=== PATIENT | female | born 1965 | race Caucasian/White ===

== ENCOUNTER 2018-03-03 05:53 | Day surgery (SDC) | payer OTHER ==
[2018-02-28 14:45] LABS: Absolute Lymphocytes (CBC) 3.1 K/uL (0.7-4.9); Absolute Monocytes 0.5 K/uL (0.1-1.3); Absolute Neutrophil 6.3 K/uL (1.8-8.0); Basophils % 0.9 % (0-1.3); Eosinophils % 1.5 % (0-4.4); Lymphocytes % 30.4 % (15.3-44.8); MPV 9.2 fL (7.6-11.3); Monocytes % 5.3 % (3.3-12.3); RBC Red Blood Cell Count 4.74 M/uL (3.86-4.86)
[2018-02-28 14:56] LABS: Urine Appearance CLEAR; Urine Bilirubin NEGATIVE (NEG); Urine Blood NEGATIVE (NEG); Urine Color YELLOW; Urine Glucose NEGATIVE (NEG); Urine Protein NEGATIVE (NEG); Urine Specific Gravity <=1.005 (1.005-1.030); Urine Urobilinogen 0.2 mg/dL (0.2-1.0)
[2018-02-28 15:20] LABS: Urine Microscopic Reflex NO UMIC
[2018-03-03] MEDS ORDERED: SCOPOLAMINE HYDROBROMIDE PATCH TD ONE (06:13)
[2018-03-03] MEDS ORDERED: Ringers Lactate 1,000 ML IV ONE ×3 (06:13→10:29)
[2018-03-03] MEDS ORDERED: LIDOCAINE 1% MPF 30 ML VIAL ONE (06:18)
[2018-03-03] MEDS ORDERED: NA CHLORIDE 0.9% 0 ML ONE (06:58)
[2018-03-03] MEDS ORDERED: NA CHLORIDE 0.9% 1,000 ML ONE (06:58)
[2018-03-03] MEDS ORDERED: LIDOCAINE 2% MPF 5 ML VIAL ONE (07:07)
[2018-03-03] MEDS ORDERED: ROCURONIUM 50 MG/5 ML VIAL IV ONE (07:07)
[2018-03-03] MEDS ORDERED: PROPOFOL 200 MG/20 ML VIAL IV ONE (07:07)
[2018-03-03] MEDS ORDERED: FENTANYL CITR 250 MCG/5 ML ONE (07:07)
[2018-03-03] MEDS ORDERED: MIDAZOLAM HCL 2 MG/2 ML INJ ONE ×2 (07:08→11:39)
[2018-03-03] MEDS ORDERED: ONDANSETRON 4 MG/2 ML VIAL ONE (07:08)
[2018-03-03] MEDS ORDERED: CEFAZOLIN 1GM (PREMIX IV) 1 GM/50 ML BAG ONE ×2 (07:32→08:06)
[2018-03-03] MEDS ORDERED: EPHEDRINE SULF 50 MG/10 ML SYR ONE (08:14)
[2018-03-03] MEDS ORDERED: DEXAMETHASONE 10 MG/ML VIAL ONE (08:17)
[2018-03-03] MEDS ORDERED: KETOROLAC 30 MG/ML INJ ONE (10:22)
[2018-03-03] MEDS: HYDROMORPHONE HCL 1 MG/ML INJ ONE ×4 (10:55→11:12)
[2018-03-03] MEDS ORDERED: PROMETHAZINE 25 MG/ML VIAL ONE (11:02)
[2018-03-03] MEDS ORDERED: HYDROCODONE/APAP 5/325 MG TAB ONE (12:44)
--- NOTE | 2018-03-04 04:00 | OP ---
Date of Procedure: 03/03/2018 Surgeon: Dawna Nguyen MD Bait Digger: Liz Sullivan. Preoperative Diagnoses: Pelvic pain status post Essure and endometrial ablation about 12 years ago. No other sources of pain. Postoperative Diagnoses: Pelvic pain status post Essure and endometrial ablation about 12 years ago. No other sources of pain. Leiomyoma and foreign bodies in the tubes. Procedures Performed: 1.Diagnostic hysteroscopy. 2.Diagnostic laparoscopy. 3.Bilateral salpingectomy. 4.Removal of Essure coil from the left tube and later conversion to total laparoscopic hysterectomy, bilateral salpingo-oophorectomy, and cystoscopy. Ebl: Minimal. Complications: No complications. Drains: No drains. Condition: Patient's condition stable. Findings: Uterine cavity completely obliterated with intrauterine adhesions. Unable to advance the uterine manipulator into the uterus without having laparoscopic assistance. On laparoscopic visualization of the cavity, there were no hydrosalpinges, there were right tubal adh esions to the pelvic sidewall, leiomyoma at the proximal part of the round ligament. On opening the left tube, the Essure coil was present and was able to be completely removed. On the right side when the salpingotomy was performed, there was no Essure coil that was detected. So decision was made in the absence of the coil that could be removed and with the suspicion from imaging that both coils co uld be on the same side, the mass present in the proximal part of the round ligament and still went t o the uterus, which was suspicious for a possible foreign body reaction if there was a coil present, surgery converted to laparoscopic hysterectomy to ensure that the foreign body is removed, and bilate ral oophorectomy performed as discussed with the patient and the patient was consented appropriately preop. Indications: The patient is a 52-year-old presenting with pelvic pain and history of menorrhagia in the past and fibroids. This was the reason why she had an endometrial ablation which was followed by placement of Essure coils for permanent sterilization. The patient has done well without any proble ms either pain or bleeding for about 6 to 8 years and she has had recurrent symptoms over time. No b leeding thus far. However, pain has been most bothersome. She was initially my patient, then was se en by Dr. Link and referred back to me for the procedure. On ultrasound, there was a question that b oth coils could be seen on the left. There was a fibroid that was detected in the anterior wall that was small. No other abnormalities detected. 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 All other non-CONTROL OPERATOR FLOW COAT workup has been negative thus far, and the patient garcia s not have any urinary symptoms. So, I consented her for hysteroscopy, laparoscopy, removal of Essur e coils, bilateral salpingectomy. If there is no other etiology that could explain her pain, possibi lity of hysterectomy, bilateral salpingo-oophorectomy was discussed, and the patient completely wante d to have hysterectomy if it was indicated. Description Of Procedure: 2 g of Ancef was given preop, re-consented. Taken to the OR, placed in a supine fashion on the operating table. General anesthesia given. The patient placed in a dorsal lit hotomy position. Pelvic exam performed. Anteflexed uterus. No adnexal masses. Very minimal prolap se. Abdomen, vulva, vagina, and perineum were prepped and draped in a sterile fashion. Grant was placed to drain the bladder. Speculum was used to expose the cervix. Anterior lip grasped with 2 Allis cla mps. Direct hysteroscopy with a SlimLine hysteroscope was performed. Unable to enter the uterine ca vity. At this point, I aborted this procedure. Grant was left in place. The area was draped. A 1 cm infraumbilical incision was made with a scalpel using the open laparoscopy technique. Fascia was incised, tagged with 0 Vicryl sutures. Peritoneum entered bluntly and S retractor was placed for the Khushboo trocar to be introduced. Site of entry was checked and was unremarkable. Upper abdomina l surfaces with omental adhesions to the anterior abdominal wall from her gastric bypass most likely, but nothing infraumbilical. Both ovaries were checked and were unremarkable. The 5 mm suprapubic a nd left lower quadrant trocars were placed under direct vision without any problems. After the bowel was tucked to the upper abdominal cavity and the patient was placed in Trendelenburg optimally, afte r visualizing the orientation of the uterus, I was able to place the diagnostic VCare and advanced 5 cm towards the midline of the uterine cavity, orientation as determined by the laparoscope . Once this was fixed in place, gloves were changed. Both ureters were traced from the pelvic brim to the ureteric tunnels and there was no anatomical dis tortion. Posterior cul-de-sac completely unremarkable. Anterior cul-de-sac with adhesions from her prior section. Started to do a salpingectomy. Took the left tube down from the fimbriated end all the way to the pr oximal part. Here, salpingotomy was performed with the help of a monopolar needle. The Essure coils were identified and carefully removed. They were removed in 3 pieces and all from the coils were co llected without leaving any residual on the bowel paying careful attention and this was handed off fo r permanent pathology for pathological documentation of the foreign body. Similarly, the tube was removed from the distal fimbriated end towards the proximal cornual end. Her e salpingotomy was performed but there was no evidence even when the incision was extended onto the c ornual end of any coil that could be detected without getting into the muscle of the uterus, so I dec ided to go over to the other side, evaluate the proximal left round ligament mass for a possibility o f the presence of coil. It was very difficult to detect, it appeared to be more like a leiomyoma how ever. Unable to differentiate this from a foreign body reaction. Due to this reason and also the fa ct that the patient desired removal of all foreign body materials, if I was not able to remove this c ompletely, it would be a problem, so hysterectomy was a preferable option at this point. So I went a head and started the hysterectomy, taking down the anterior broad ligament, creating a bladder flap, taking it all the way to the right side. Then on the left side, the round ligament was taken down. Utero-ovarian ligament, mesosalpinx, posterior broad ligament were all taken down to the left uterosa cral ligament and dissection was carried to pull the retracted ureter laterally. Then, the vessels w ere skeletonized. On the opposite side, similar dissection was performed taking down the utero-ovari an ligament, round ligament, and the posterior broad ligament to the right uterosacral. Then broad l igament was skeletonized, vessels were well exposed. Bladder flap was raised with the help of monopo lar, taking down the loose areolar tissue to get into the vesicovaginal space. The bladder was disse cted inferiorly adequately, and at this point, the vessels were taken by creating medial windows with monopolar hook blade on the right side, then bipolar basket tip used to take down the vessels close to the uterus and cervix at the level of the internal os. Then, these were . Cardinal liga ments were taken down as well with the help of the bipolar basket tip and the LigaSure. Then, on the opposite side, similar dissection was performed to take down the vessels and the supports. Monopola r hook blade was used to perform a circumferential colpotomy leaving the diagnostic VCare in place. The cervix was held anteriorly while performing the posterior colpotomy, and once the entire specimen was detached, it was pulled out through the vagina. It was a tiny uterus. Both tubal specimens wer e all retrieved and handed out. The ovaries were taken down with the help of the LigaSure on each si de after isolating the infundibulopelvic ligament, first on the left side, then right side, and they were retrieved through the vagina. Thorough irrigation and suction were performed at the vaginal cuff. Vaginal cuff closure was perform ed with the help of a 0 Vicryl simple stitch at the left angle, then another simple stitch placed at the right angle closing the angle well and then continuous running lock suture with the stitch starti ng at the right side of the patient. This was tied to the left tail and there was excellent closure and apposition of the tissues. No evidence of any bleeding. There was excellent hemostasis. Molder ior peritoneum was included in the closure. All the pedicles were checked and were unremarkable. All the trocars removed. I placed a 10 mm supr apubic trocar at the time of suturing to make it easy for the CT-1 needle to come in and out without have to change ports multiple times. After the gas was desufflated and trocars removed, the fascia at the umbilicus was closed with the he lp of 0 Vicryl suture in [id number] fashion x2 and a simple 0 Vicryl stitch was attempted to susan ce in the suprapubic incision, but this was really a tiny incision, so I just had difficulty with acc ess as well was encountered, so I left this alone. A deep stitch in the subcutaneous tissues was susan rusty. All the skin incisions closed with the help of interrupted Monocryl 4-0 sutures. Then, Grant w as removed, the vaginal occluder that was placed, a sponge tucked in a glove was also removed. Then, full cystoscopy was performed with a 17-Turkmen sheath, 30-degree lens and normal saline. Both urete mirella orifices were well visualized as the bladder was distended appropriately. No evidence of any clinton dder trauma or foreign body. Strong jets of urine were seen from both ureteric orifices and the blad elizabeth was drained. The patient was recovered from anesthesia, vagina was cleaned. Instrument, needle, and sponge counts were correct at the end of the case. Patient tolerated the procedure well. She w ill follow up with me in 1 week. EDUARD/EVA Voice ID: [id number] Report ID: [id number]
== END 2018-03-03 13:17 | disposition home or self-care (01) ==
LOC: OR 05:53
PROVIDERS: ATTEND Obstetrics & Gynecology
PROC: 0UT24ZZ Resection of Bilateral Ovaries, Percutaneous Endoscopic Approach (ICD-10-PCS; 2018-03-03)
PROC: 0UT74ZZ Resection of Bilateral Fallopian Tubes, Percutaneous Endoscopic Approach (ICD-10-PCS; 2018-03-03)
PROC: 0UTC4ZZ Resection of Cervix, Percutaneous Endoscopic Approach (ICD-10-PCS; 2018-03-03)
PROC: 0UT94ZZ Resection of Uterus, Percutaneous Endoscopic Approach (ICD-10-PCS; principal; 2018-03-03 07:00)
DX: D25.2 Subserosal leiomyoma of uterus (principal); N83.11 Corpus luteum cyst of right ovary; T19.8XXA Foreign body in other parts of genitourinary tract, initial encounter; M79.5 Residual foreign body in soft tissue; I10 Essential (primary) hypertension; K66.0 Peritoneal adhesions (postprocedural) (postinfection); F17.200 Nicotine dependence, unspecified, uncomplicated; Z79.899 Other long term (current) drug therapy; Z98.84 Bariatric surgery status
CPT/HCPCS: 36415; 81003; 83001; 85025; 86850; 86900; 86901; 88300; 88307; J0690; J1100; J1170; J2250; J2405; J2550; J2704; J3010; J7030

== ENCOUNTER 2020-11-07 11:17 | Emergency (ER) | payer OTHER ==
--- NOTE | 2020-11-07 12:21 | RAD REPORT ---
EXAM DESCRIPTION: RAD - Knee Right 3 View - 11/07/2020 12:12 pm CLINICAL HISTORY: fall;Pain COMPARISON: No comparisons FINDINGS: No significant bone or joint abnormality seen.
--- NOTE | 2020-11-07 12:22 | RAD REPORT ---
EXAM DESCRIPTION: RAD - Foot Left 3 View - 11/07/2020 12:12 pm CLINICAL HISTORY: fall;Pain COMPARISON: No comparisons FINDINGS: No acute fracture or dislocation is seen. Moderate plantar calcaneal spur is evident.
--- NOTE | 2020-11-07 12:22 | RAD REPORT ---
EXAM DESCRIPTION: RAD - Knee Left 3 View - 11/07/2020 12:12 pm CLINICAL HISTORY: fall;Pain COMPARISON: No comparisons FINDINGS: Mild medial compartment space arthritic changes are present. No fracture or dislocation se en. No joint effusion present.
--- NOTE | 2020-11-07 12:52 | ER ---
Nurse's Notes [facility] Name: Sis Bobby Age: 55 yrs Sex: Female : 1965 Arrival Date: 11/07/2020 Time: 11:18 Bed DIS3 Private MD: Diagnosis: Abrasion of the right lower leg;Left foot strain;Internal derangement of the right knee;Fall Presentation: 11/07 11:26 Chief complaint: Patient states: tripped and fell today in a parking lot, c/o lani knee sv pain and left foot pain. Care prior to arrival: None. Mechanism of Injury: Fall from standing position. Trauma event details: Injury occurred in the [facility], Injury occurred: on a street or highway. Injury occurred: November 07, 2020. 11:26 Acuity: BINU 4 sv 11:26 Method Of Arrival: Ambulatory sv 11:28 Coronavirus screen: Client denies travel out of the [place] in the last 14 days. At this sv time, the client does not indicate any symptoms associated with coronavirus-19. Ebola Screen: No symptoms or risks identified at this time. Onset of symptoms was November 07, 2020. 11:28 Initial Sepsis Screen: Does the patient meet any 2 criteria? No. Patient's initial sv sepsis screen is negative. Does the patient have a suspected source of infection? No. Patient's initial sepsis screen is negative. Risk Assessment: Do you want to hurt yourself or someone else? Patient reports no desire to harm self or others. Triage Assessment: 11:41 General: Appears in no apparent distress. uncomfortable, Behavior is calm, cooperative, sv appropriate for age. Pain: Complains of pain in bilateral knees and left foot. Neuro: Level of Consciousness is awake, alert, obeys commands, Gait is steady. Respiratory: Respiratory effort is even, unlabored. Injury Description: Abrasion sustained to dorsum of left foot, right knee and right velez. Trauma Activation: Not Applicable Physician: ED Physician; Name: ; Notified At: ; Arrived At: Physician: General Surgeon; Name: ; Notified At: ; Arrived At: Physician: Radiology; Name: ; Notified At: ; Arrived At: Physician: Respiratory; Name: ; Notified At: ; Arrived At: Physician: Lab; Name: ; Notified At: ; Arrived At: Historical: - Allergies: 11:28 Codeine; sv - PMHx: 11:[address]; [address] 1 melanoma; sv - Immunization history:: Client reports receiving the 2nd dose of the Covid vaccine, Client reports receiving the 1st dose of the Covid vaccine. - Social history:: Smoking status: Patient reports the use of cigarette tobacco products, denies chronic smoking, but will smoke occasionally. Screenin:22 Abuse screen: Denies threats or abuse. Denies injuries from another. Nutritional zb screening: No deficits noted. Tuberculosis screening: No symptoms or risk factors identified. Fall Risk Fall in past 12 months (25 points). No secondary diagnosis (0 pts). No IV (0 pts). Ambulatory Aid- None/Bed Rest/Nurse Assist (0 pts). Gait- Normal/Bed Rest/Wheelchair (0 pts) Mental Status- Oriented to own ability (0 pts). Total Ortiz Fall Scale indicates No Risk (0-24 pts). Assessment: 12:00 General: Appears in no apparent distress. Behavior is calm, cooperative, appropriate zb for age. Pain: Complains of pain in right leg and left foot and right velez and right knee Pain currently is 5 out of 10 on a pain scale. Quality of pain is described as Pain began suddenly, today. Neuro: Level of Consciousness is awake, alert, obeys commands, Oriented to person, place, time, situation. Cardiovascular: Patient's skin is warm and dry. Respiratory: Airway is patent Respiratory effort is even, unlabored, Respiratory pattern is regular, symmetrical. Derm: Skin is healthy with good turgor. Musculoskeletal: Range of motion: intact in all extremities, Swelling present in left foot. Injury Description: Abrasion sustained to left foot and right leg. Vital Signs: 11:28 BP 148 / 89; Pulse 70; Resp 16; Temp 98.2; Pulse Ox 99% ; Weight 83.91 kg; Height 5 ft. sv 4 in. (162.56 cm); 13:22 BP 140 / 80; Pulse 71; Resp 16; Pulse Ox 98% on R/A; zb 11:28 Body Mass Index 31.75 (83.91 kg, 162.56 cm) sv ED Course: 11:18 Patient arrived in ED. am2 11:27 Triage completed. sv 11:28 Arm band placed on. sv 12:12 Knee Right 3 View XRAY In Process Unspecified. EDMS 12:12 Knee Left 3 View XRAY In Process Unspecified. EDMS 12:12 Foot Left 3 View XRAY In Process Unspecified. EDMS 12:16 Arsh Herron PA is PHCP. jmm 12:16 Danie Melendez MD is Attending Physician. jmm 12:19 Lyndsey Cordova, CYALA is Primary Nurse. zb 12:51 Primo Carr MD is Referral Physician. jmm 13:22 Patient has correct armband on for positive identification. Pulse ox on. NIBP on. zb 13:22 No provider procedures requiring assistance completed. Patient did not have IV access zb during this emergency room visit. 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 Exp: zb 05/30/2022. Lot #: [id number]. } Route: IM; Site: right deltoid; 13:15 Follow up: Response: No adverse reaction zb Outcome: 12:52 Discharge ordered by . jmm 13:22 Discharged to home ambulatory. zb 13:22 Condition: stable 13:22 Discharge instructions given to patient, Instructed on discharge instructions, follow up and referral plans. safe sex practices, Demonstrated understanding of instructions, follow-up care, medications, Prescriptions given X 1. 13:23 Patient left the ED. zb Signatures: Dispatcher [employer] Nikole Felix, Arsh Hernandez RN, PA PA jmm Moreno, Amanda [facility] Lyndsey Cordova RN RN zb
--- NOTE | 2020-11-07 12:53 | EDPHYS ---
Physician Documentation [facility] Name: Sis Bobby Age: 55 yrs Sex: Female : 1965 Arrival Date: 11/07/2020 Time: 11:18 Bed DIS3 Private MD: ED Physician Danie Melendez HPI: 11/07 12:47 This 55 yrs old Female presents to ER via Ambulatory with complaints of Fall jmm Injury, Ankle Injury, Leg Pain. 12:47 Details of fall: The patient fell from an upright position. Onset: The symptoms/episode jmm began/occurred acutely, just prior to arrival. Associated injuries: The patient sustained right and left lower extremities. It is unknown whether or not the patient has had similar symptoms in the past. This is a 55-year-old female with history of hypertension the presents emerged department with complaints of bilateral lower extremity pain following a fall which occurred just prior to arrival. Patient states she slipped in a parking lot landing onto outstretched hands. Patient denies hitting her head. Pain is mainly localized to the right tibial region and the left foot.. Historical: - Allergies: 11:28 Codeine; sv - PMHx: 11:[address] 1 melanoma; sv - Immunization history:: Client reports receiving the 2nd dose of the Covid vaccine, Client reports receiving the 1st dose of the Covid vaccine. - Social history:: Smoking status: Patient reports the use of cigarette tobacco products, denies chronic smoking, but will smoke occasionally. ROS: 12:47 Constitutional: Negative for fever, chills, and weight loss, Cardiovascular: Negative jmm for chest pain, palpitations, and edema, Respiratory: Negative for shortness of breath, cough, wheezing, and pleuritic chest pain. 12:47 MS/extremity: Positive for injury or acute deformity, pain. 12:47 All other systems are negative. Exam: 12:47 Constitutional: This is a well developed, well nourished patient who is awake, alert, jmm and in no acute distress. Head/Face: atraumatic. Eyes: EOMI, no conjunctival erythema appreciated ENT: Moist Mucus Membranes Neck: Trachea midline, Supple Chest/axilla: Normal chest wall appearance and motion. Cardiovascular: Regular rate and rhythm. No edema appreciated Respiratory: Normal respirations, no respiratory distress appreciated Abdomen/GI: Non distended, soft Back: Normal ROM 12:47 Musculoskeletal/extremity: Left foot diffusely tender to palpation, full dorsalis pulses appreciated, compartments are soft, neurovascular intact. Right anterior knee mildly tender to palpation, no obvious deformity, full distal dorsalis pedis pulse, compartments are soft, full range of motion appreciated to the right knee, neurovascular intact. 12:47 Skin: Abrasion noted to the right tibia region. 12:47 Neuro: Orientation: is normal, Mentation: is normal, Memory: is normal. 12:47 Psych: Behavior/mood is pleasant, cooperative. Vital Signs: 11:28 BP 148 / 89; Pulse 70; Resp 16; Temp 98.2; Pulse Ox 99% ; Weight 83.91 kg; Height 5 ft. sv 4 in. (162.56 cm); 13:22 BP 140 / 80; Pulse 71; Resp 16; Pulse Ox 98% on R/A; zb 11:28 Body Mass Index 31.75 (83.91 kg, 162.56 cm) sv MDM: 12:20 Patient medically screened. [facility] 12:51 Data reviewed: vital signs, nurses notes. Counseling: I had a detailed discussion with liza the patient and/or guardian regarding: the historical points, exam findings, and any diagnostic results supporting the discharge/admit diagnosis, radiology results, to return to the emergency department if symptoms worsen or persist or if there are any questions or concerns that arise at home. ED course: X-rays are negative for fracture. Will treat abrasions and strains. Patient is advised to follow with orthopedics and otherwise given strict return precautions. Patient understood and agrees plan of care.. 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 Exp: zb 05/30/2022. Lot #: [id number]. } Route: IM; Site: right deltoid; 13:15 Follow up: Response: No adverse reaction zb Disposition: 14:51 Co-signature as Attending Physician, Danie Melendez MD I agree with the assessment and chio plan of care. Disposition Summary: 11/07/20 12:52 Discharge Ordered Location: Home jmm Condition: Stable jmm Diagnosis - Abrasion of the right lower leg jmm - Left foot strain jmm - Internal derangement of the right knee jmm - Fall jmm Followup: [facility] - With: Primo Carr MD - When: 2 - 3 days - Reason: Recheck today's complaints, Continuance of care, Re-evaluation by your physician Discharge Instructions: - Discharge Summary Sheet jmm - Abrasion jmm - Acute Knee Pain, Adult jmm - Foot Pain [facility] Forms: - Medication Reconciliation Form jmm - Thank You Letter jmm - Antibiotic Education jmm - Prescription Opioid Use jm - Work release form em1 Prescriptions: - Ibuprofen 800 mg Oral Tablet - take 1 tablet by ORAL route every 8 hours As needed take with food; 30 tablet; [facility] Refills: 0, Product Selection Permitted Signatures: Dispatcher [employer] Nikole Felix, RN Danie Mcgill MD MD cha Mickail, Joel, PA PA Lyndsey Henley RN RN leandra
[2020-11-07] MEDS ORDERED: TETANUS & DIPHTHERIA TOX,ADULT 0.5 ML VIAL ONE (13:22)
[2020-11-07 13:29] VITALS: TEMP 98.2
[2020-11-07 13:30] VITALS: BP 140/80; O2SAT 98
== END 2020-11-07 13:23 | disposition home or self-care (01) ==
LOC: ER 11:17
DX: S96.912A Strain of unspecified muscle and tendon at ankle and foot level, left foot, initial encounter (principal); M23.91 Unspecified internal derangement of right knee; S80.811A Abrasion, right lower leg, initial encounter; W01.0XXA Fall on same level from slipping, tripping and stumbling without subsequent striking against object, initial encounter; Y93.01 Activity, walking, marching and hiking; Y92.481 Parking lot as the place of occurrence of the external cause; Z23 Encounter for immunization; Z88.5 Allergy status to narcotic agent; I10 Essential (primary) hypertension; F17.210 Nicotine dependence, cigarettes, uncomplicated
CPT/HCPCS: 90471; 90714; 99284

== ENCOUNTER 2022-01-05 08:58 | Emergency (ER) | payer OTHER ==
--- OUTSIDE RECORDS SUMMARY | 2022-01-05 09:05 | XMS REPORT | Continuity of Care Document ---
:1965 Author Organization [facility] t Address [address] [place] [address] Care Team Providers Name Role Phone Katy Connolly Primary Care Physician Doctor Unassigned, [place] Attending Clinician Unavailable RADIOLOGY Attending Clinician Unavailable Radiology Attending Clinician Unavailable KATY CONNOLLY Admitting Clinician Unavailable Payers Payer Name Policy Type Policy Number Effective Date Expiration Date S ource Problems Condition Condition Condition Status Onset Resolution Last Treating Co mments Source Name Details Category Date Date Treatment Clinician Date Claustroph Claustroph Disease Active U nivers obia obia 1-15 ity of 00:00: [address] Abnormal Abnormal Disease Active 2016-03 Unive rs thyroid thyroid 1-21 ity of function function 00:00: [place] test test [facility] Prediabete Prediabete Disease Active U nivers s s - ity of 00:00: [place] [facility] Mixed Mixed Disease Active Univers dyslipidem dyslipidem 10-03 it y of ia ia 00:00: [place] [facility] Essential Essential Disease Active Uni vers hypertensi hypertensi - it y of on on 00:00: [place] [facility] Eczema Eczema Disease Active Univers - ity of 00:00: Medical Branch Actinic Actinic Disease Active Univers keratosis keratosis 09-30 ity of 00:00: [place] [facility] Obesity Obesity Disease Active Univers (BMI (BMI 09-30 ity of 30-39.9) 30-39.9) 00:00: [place] 00 [facility] Allergic Allergic Disease Active Unive rs rhinitis rhinitis 09-30 ity of 00:00: [place] 00 Medical Branch Other Other Disease Active Univers cardiac cardiac 09-30 ity of arrhythmia arrhythmia 00:[place] [facility] Mitral Mitral Disease Active Univers valve valve 09-30 ity of prolapse prolapse 00:00: [place] 00 Medical Branch Irritabili Irritabili Disease Active U nivers ty ty 09-30 ity of 00:00: [place] 00 Medical Branch Family Family Disease Active Univers history of history of 09-30 it y of diabetes diabetes 00:00: [place] mellitus mellitus 00 Medica l Branch Allergies, Adverse Reactions, Alerts Allergy Allergy Status Severity Reaction(s) Onset Inactive Treating Comm ents Source Name Type Date Date Clinician CODEINE DRUG Active ITCHING 2013-03 Univers INGREDI 2 ity of 00:00: [place] 00 Medical Branch Codeine Propensi Active Itching 2013-03 Univer s ty to 2-04 ity of adverse 00:00: [place] reaction 00 Medical s Branch Social History Social Habit Start Date Stop Date Quantity Comments Source History SDOH [facility] [place] Alcohol Frequency Medical Branch History SDOH [facility] [place] Alcohol Std Drinks Medica l Branch History SDOH [facility] [place] Alcohol Binge Medical Bra [facility] Tobacco use and 2017-09-07 2017-09-07 Never used [facility] exposure 00:00:00 00:00:00 Medical Branch Alcohol intake 2017-09-07 2017-09-07 0 /d [facility] 00:00:00 00:00:00 Medical Branch Alcohol Comment 2015-10-01 2015-10-01 rarely [facility] 00:00:00 00:00:00 Medical Branch Sex [birth year] [facility] 00:00:00 00:00:00 Medical Branch Smoking Status Start Date Stop Date Source Light tobacco smoker 2017-09-07 00:00:00 Univers ity of [place] [facility] Medications Ordered Filled Start Stop Current Ordering Indication Dosage Frequency Signature Comments Components Source Medication Medication Date Date Medication? Clinician (SIG) Name Name maribel Yes Apply to Un [place] ne 6-27 area(s) 2 ity of acetonide 00:00: (two) [place] 0.1 % cream 00 times Medical daily. Branch triamcinolo Yes Apply to Un [place] ne 6-27 area(s) 2 ity of acetonide 00:00: (two) [place] 0.1 % cream 00 times Medical daily. Branch triamcinolo Yes Apply to Un [place] ne 6-27 area(s) 2 ity of acetonide 00:00: (two) [place] 0.1 % cream 00 times Medical daily. Branch dicyclomine Yes 20mg Take 1 Univ ers (BENTYL) 20 6-26 tablet by ity of mg tablet 00:00: mouth 4 (four) Medical times [place] daily as needed for Abdominal pain for up to 30 doses. dicyclomine Yes 20mg Take 1 Univ ers (BENTYL) 20 6-26 tablet by ity of mg tablet 00:00: mouth 4 [place] (four) Medical times [place] daily as needed for Abdominal pain for up to 30 doses. dicyclomine Yes 20mg Take 1 Univ ers (BENTYL) 20 6-26 tablet by ity of mg tablet 00:00: mouth 4 [place] (four) Medical times [place] daily as needed for Abdominal pain for up to 30 doses. diazePAM 5 Yes [id number] 5-10 mg po Univers mg tablet -09 x 1 dose ity of 00:00: 30 mins [place] 00 prior to Medical MRI Branch diazePAM 5 Yes [id number] 5-10 mg po Univers mg tablet 09 x 1 dose ity of 00:00: 30 mins [place] 00 prior to Medical MRI Branch diazePAM 5 Yes [id number] 5-10 mg po Univers mg tablet -09 x 1 dose ity of 00:00: 30 mins [place] 00 prior to Medical MRI Branch lisinopril- 2016-03 Yes [id number] 1{tbl} Take 1 Univers hydrochloro 1-13 tablet by ity of thiazide 00:00: mouth [place] 20-25 mg 00 daily. Medical per tablet Branch levocetiriz 2016-03 Yes 2.5mg Take 0.5-1 Univers ine 5 mg 1-13 tablets by ity o f tablet 00:00: mouth [place] 00 every Medical evening. Branch beclomethas 2016-03 Yes 2{spray Use 2 Un [place] one 1-13 } Sprays in ity of dipropionat 00:00: each [place] e (QNASL) 00 nostril Medical 80 daily. Branch mcg/actuati on nasal spray lisinopril- 2016-03 Yes [id number] 1{tbl} Take 1 Univers hydrochloro 1-13 tablet by ity of thiazide 00:00: mouth [place] 20-25 mg 00 daily. Medical per tablet Branch levocetiriz 2016-03 Yes 2.5mg Take 0.5-1 Univers ine 5 mg 1-13 tablets by ity o f tablet 00:00: mouth [place] 00 every Medical evening. Branch beclomethas 2016-03 Yes 2{spray Use 2 Un [place] one 1-13 } Sprays in ity of dipropionat 00:00: each [place] e (QNASL) 00 nostril Medical 80 daily. Branch mcg/actuati on nasal spray lisinopril- 2016-03 Yes [id number] 1{tbl} Take 1 Univers hydrochloro 1-13 tablet by ity of thiazide 00:00: mouth [place] 20-25 mg 00 daily. Medical per tablet Branch levocetiriz 2016-03 Yes 2.5mg Take 0.5-1 Univers ine 5 mg 1-13 tablets by ity o f tablet 00:00: mouth [place] 00 every Medical evening. Branch beclomethas 2016-03 Yes 2{spray Use 2 Un [place] one 1-13 } Sprays in ity of dipropionat 00:00: each [place] e (QNASL) 00 nostril Medical 80 daily. Branch mcg/actuati on nasal spray Immunizations Ordered Filled Immunization Date Status Comments [facility] e Immunization Name Name Influenza Virus 2015-12-13 Completed Universit y of Vaccine 00:00:00 [facility] Influenza Virus 2015-12-13 Completed Universit y of Vaccine 00:00:00 [facility] Influenza Virus 2015-12-13 Completed Universit y of Vaccine 00:00:00 [facility] Procedures Procedure Date / Time Performing Clinician Source Performed AUTHORIZATION FOR 2021-09-04 05:01:00 Doctor Unassigned, No Univ [facility] RELEASE OF PHI Name Medical [place] LOW DOSE LUNG NODULE 2021-08-26 13:25:28 Kina, [facility] ASSIGNMENT OF BENEFITS 2021-08-26 12:56:48 Doctor Unassigned, No [facility] Encounters Start End Encounter Admission Attending Care Care Encounter Source Date/Time Date/Time Type Type Clinicians Facility Department ID 2021-09-04 2021-09-04 Orders Doctor CLARKE [id number] Univers 00:00:00 00:00:00 Only Unassigned, TYRESE [id number] ity of [place] [facility] [id number] Elias as [id number] [facility] jackson 009 Branch 2021-08-26 2021-08-26 Outpatient R RADIOLOGY [facility] [id number] Univers 08:01:06 23:59:00 ity of [facility] 2021-08-26 2021-08-26 [facility]iology [facility] [id number] Univers 08:00:00 23:59:00 Encounter [place] [id number] ity of [place] [id number] [facility] [id number] [facility] jackson 801 Branch 2021-08-26 2021-08-26 Orders Doctor TRICIA [id number] Univers 00:00:00 00:00:00 Only Unassigned, TYRESE [id number] ity of [place] [facility] [id number] Elias as [id number] [facility] 009 Branch Results This patient has no known results.
[2022-01-05] MEDS ORDERED: MORPHINE 4 MG/ML SYR ONE (09:37)
[2022-01-05] MEDS ORDERED: ONDANSETRON 4 MG/2 ML VIAL ONE (09:37)
[2022-01-05] MEDS ORDERED: NA CHLORIDE 0.9% 1,000 ML ONE (09:37)
[2022-01-05 09:43] LABS: Absolute Lymphocytes (CBC) 3.1 K/uL (0.7-4.9); Hematocrit 39.7 % (36.0-45.0); Lymphocytes % 18.1 % (15.3-44.8); MCV 88.5 fL (80-100); MPV 9.1 fL (7.6-11.3); RBC Red Blood Cell Count 4.48 M/uL (3.86-4.86)
[2022-01-05 09:48] LABS: Protime INR 1.07
[2022-01-05 10:02] LABS: Albumin 3.5 g/dL (3.4-5.0); Bilirubin Total 0.5 mg/dL (0.2-1.0); Potassium 3.8 mmol/L (3.5-5.1); Protein, Total 7.4 g/dL (6.4-8.2)
--- NOTE | 2022-01-05 10:49 | RAD REPORT ---
EXAM DESCRIPTION: CT - Chest Abdomen Pelvis W Cont - 01/05/2022 10:28 am CLINICAL HISTORY: Chest and abdomen pain. distal esophageal obstruction COMPARISON: No comparisons TECHNIQUE: Approximately 100 mL nonionic IV contrast was administered to the patient. All CT scans are performed using dose optimization technique as appropriate and may include automated exposure control or mA/KV adjustment according to patient size. FINDINGS: The lungs are clear.No pleural or pericardial effusion.No intrathoracic adenopathy. Esophagus is fluid-filled and distended. Postsurgical changes are present at the gastroesophageal mere ction. There is a rounded 5 cm distended air and fluid collection in the upper aspect of the stomach with postsurgical changes present. This is suspicious for intussusception or volvulus of the mildly d ilated portion of the proximal esophagus or a hiatal hernia. This is likely contributing to the esoph ageal obstruction. The liver, spleen, pancreas, adrenal glands and kidneys are within normal limits. No small bowel obstruction, free air, free fluid or abscess. Mild sigmoid diverticulosis without dive rticulitis. Normal appendix. No pathologic lymphadenopathy in the abdomen or pelvis. No worrisome osseous finding. IMPRESSION: The esophagus appears distended and fluid-filled suggesting obstruction. There are posts urgical changes in the region of the gastroesophageal junction. There is fluid and air-filled structu re measuring 5 cm within the lumen of the superior stomach cavity. This suggests that there is intuss usception or volvulus type abnormality present in the region involving a dilated proximal esophagus o r hiatal hernia. Recommend upper endoscopy for further evaluation.
[2022-01-05] MEDS ORDERED: PROMETHAZINE INJ 25 MG/ML AMP ONE (12:00)
[2022-01-05] MEDS ORDERED: PANTOPRAZOLE 40 MG INJ ONE (12:00)
[2022-01-05] MEDS ORDERED: NA CHLORIDE 0.9% 50 ML IV ONE (12:00)
--- NOTE | 2022-01-05 12:03 | ER ---
Nurse's Notes [facility] Cris Name: Sis Bobby Age: 56 yrs Sex: Female : 1965 Arrival Date: 01/05/2022 Time: 09:01 Bed 17 Private MD: Diagnosis: Esophageal obstruction;GI Bleed Presentation: 01/05 09:22 Chief complaint: Patient states: Was seen in [place] ER last night and had a CT done vg1 and was told 'has an obstruction in pouch'. Pt stated had weight loss sx in 1998. Stated 'black vomit and black stool' and Epigastric pain. Coronavirus screen: Vaccine status: Patient reports receiving the 2nd dose of the covid vaccine. Client denies travel out of the [place] in the last 14 days. Ebola Screen: Patient negative for fever greater than or equal to 101.5 degrees Fahrenheit, and additional compatible Ebola Virus Disease symptoms Patient denies exposure to infectious person. Initial Sepsis Screen: Does the patient meet any 2 criteria? RR > 20 per min. HR > 90 bpm. Yes Does the patient have a suspected source of infection? No. Patient's initial sepsis screen is negative. Risk Assessment: Do you want to hurt yourself or someone else? Patient reports no desire to harm self or others. Onset of symptoms was January 04, 2022. 09:22 Method Of Arrival: Wheelchair vg1 09:22 Acuity: BINU 3 vg1 Triage Assessment: 09:25 General: Appears uncomfortable, Behavior is anxious, crying. Pain: Complains of pain in vg1 epigastric area Pain currently is 8 out of 10 on a pain scale. Pain began 1 day ago. Neuro: Level of Consciousness is awake, alert, obeys commands, Oriented to person, place, time, situation. GI: Abdomen is round Reports diarrhea, epigastric pain, intolerance of fluids, nausea, vomiting, "black stool" and "black vomit". Derm: Skin is clammy, Skin is pale. Historical: - Allergies: 09:25 Codeine; vg1 09:25 tramadol; vg1 09:25 Sulfa (Sulfonamide Antibiotics); vg1 09:25 Bactrim; vg1 - Home Meds: 09:25 Lisinopril Oral [Active]; Metoprolol Tartrate Oral [Active]; Marisol Oral [Active]; vg1 - PMHx: 09:25 HTN; [address] 1 melanoma; vg1 - PSHx: 09:25 Tonsillectomy; Hysterectomy; section; Stomach; vg1 - Social history:: Smoking status: Patient reports the use of cigarette tobacco products, smokes one-half pack cigarettes per day. Screenin:33 Abuse screen: Denies threats or abuse. Nutritional screening: No deficits noted. tw2 Tuberculosis screening: No symptoms or risk factors identified. Fall Risk None identified. Assessment: 11:20 Reassessment: Patient appears in no apparent distress at this time. Patient and/or tw2 family updated on plan of care and expected duration. Pain level reassessed. Patient is alert, oriented x 3, equal unlabored respirations, skin warm/dry/pink. Patient states feeling better. 11:39 Reassessment: No changes from previously documented assessment. Carlos A Caldwell at bedside. ll1 12:31 Reassessment: No changes from previously documented assessment. Patient and/or family ll1 updated on plan of care and expected duration. Pain level reassessed. Patient is alert, oriented x 3, equal unlabored respirations, skin warm/dry/pink. 13:30 Reassessment: No changes from previously documented assessment. unable to pass NG tube ll1 past nares passageway on both sides. Attempted x 2 to both nares, patient tolerated procedures well. 13:43 Reassessment: No changes from previously documented assessment. Patient and/or family ll1 updated on plan of care and expected duration. Pain level reassessed. Report Calin Monterroso RN. 13:44 GI: Bowel sounds present X 4 quads. Abd is soft and non tender X 4 quads. ll1 14:34 Reassessment: No changes from previously documented assessment. Patient and/or family ll1 updated on plan of care and expected duration. Pain level reassessed. 15:10 Reassessment: No changes from previously documented assessment. Patient and/or family ll1 updated on plan of care and expected duration. Pain level reassessed. 15:19 Reassessment: No changes from previously documented assessment. ki [place] ll1 ([phone]) informed patient is being transferred downtown now by EMS. Verbalized understanding. Vital Signs: 09:22 BP 105 / 81; Pulse 110; Resp 24; Temp 98.3; Pulse Ox 98% on R/A; Weight 83.91 kg; vg1 Height 5 ft. 4 in. (162.56 cm); Pain 8/10; 09:52 BP 101 / 76; Pulse 88; Resp 17; Pulse Ox 95% on R/A; Pain 1/10; tw2 11:20 BP 117 / 75; Pulse 104; Resp 24; Pulse Ox 99% on R/A; tw2 12:30 BP 111 / 75; Pulse 95; Resp 20; Pulse Ox 95% ; ll1 14:34 BP 102 / 64; Pulse 84; Resp 18; Pulse Ox 95% on R/A; ll1 15:09 BP 104 / 67; Pulse 77; Resp 17; Pulse Ox 95% on R/A; ll1 09:22 Body Mass Index 31.75 (83.91 kg, 162.56 cm) vg1 ED Course: 09:01 Patient arrived in ED. am2 09:02 [facility] 09:02 Kings Yoder MD is Attending Physician. 7 09:12 Bed in low position. Call light in reach. monitor technician on. Pulse ox on. NIBP on. tw2 09:18 Arm band placed on Patient placed in an exam room, on a stretcher. ss 09:25 Triage completed. vg1 09:27 Inserted saline lock: 22 gauge in left antecubital area, using aseptic technique. Blood ll1 collected. 09:33 Bea Gutierres, RN is Primary Nurse. tw2 10:29 CT Chest, Abdomen, Pelvis - W/Contrast In Process Unspecified. EDMS 12:02 Alex Yen MD is Hospitalizing Provider. jh7 12:45 initiated transfer to [facility]. bd 13:44 No provider procedures requiring assistance completed. Patient transferred, IV remains ll1 in place. Administered Medications: 09:43 Drug: NS 0.9% 1000 ml Route: IV; Rate: 1 bolus; Site: right antecubital; tw2 12:05 Follow up: Response: No adverse reaction; IV Status: Completed infusion; IV Intake: ll1 1000ml 09:43 Drug: Zofran (Ondansetron) 4 mg Route: IVP; Site: right antecubital; tw2 12:04 Follow up: Response: No adverse reaction ll1 09:45 Drug: morphine 4 mg Route: IVP; Infused Over: 4 mins; Site: right antecubital; tw2 12:04 Follow up: Response: No adverse reaction; RASS: Alert and Calm (0) ll1 12:04 Drug: Phenergan (promethazine) 12.5 mg Route: IVP; Site: right antecubital; ll1 12:30 Follow up: Response: No adverse reaction; Nausea is decreased; RASS: Alert and Calm (0) ll1 12:04 Drug: ProTONIX (pantoprazole) 40 mg Route: IVP; Site: right antecubital; ll1 12:30 Follow up: Response: No adverse reaction ll1 12:30 Drug: Zosyn (piperacillin-tazobactam) 3.375 grams Route: IVPB; Infused Over: 60 mins; ll1 Site: right antecubital; 13:34 Follow up: Response: No adverse reaction; IV Status: Completed infusion; IV Intake: ll1 100ml 13:30 Drug: ProTONIX (pantoprazole) 8 mg/hr Route: IV; Rate: 25 ml/hr; Site: right ll1 antecubital; 15:11 Follow up: IV Status: Completed infusion; Infusion continued upon transfer; IV Intake: ll1 24ml Medication: 11:20 VIS not applicable for this client. tw2 Intake: 12:05 IV: 1000ml; Total: 1000ml. ll1 13:34 IV: 100ml; Total: 1100ml. 1 15:11 IV: 24ml; Total: 1124ml. 1 Outcome: 12:03 Decision to Hospitalize by Provider. [facility] 12:15 ER care complete, transfer ordered by . [facility] 13:44 Transferred by ground EMS to [facility], Transfer form completed. 1 13:44 Condition: stable 13:44 Instructed on the need for transfer. 15:19 Patient left the ED. 1 Signatures: Dispatcher [employer] EDMS Dione Montero Shelby RN RN Bea Alanis RN RN tw2 Maureen Pugh Victoria RN RN 1 Alda Ochoa RN RN ll1 Ramona Caldwell FNP FNP [facility]
--- NOTE | 2022-01-05 12:03 | EDPHYS ---
Physician Documentation [facility] Name: Sis Bobby Age: 56 yrs Sex: Female : 1965 Arrival Date: 01/05/2022 Time: 09:01 Bed 17 Private MD: ED Physician Kings Yoder HPI: 01/05 09:05 This 56 yrs old Female presents to ER via Unassigned with complaints of Abdominal Pain, jh7 Nausea/Vomiting. 09:05 The patient presents with abdominal pain in the epigastric area. Onset: The jh7 symptoms/episode began/occurred yesterday. Associated signs and symptoms: Pertinent positives: nausea and vomiting. Patient was seen at [facility] last night. She states that she was concern for obstruction and had weight loss surgery in . CT shows developing esophageal outlet stricture or obstruction. States that they advised her to go to the nearest ER. Patient currently complaining of severe epigastric pain and constant nausea and vomiting.. Historical: - Allergies: 09:25 Codeine; vg1 09:25 tramadol; vg1 09:25 Sulfa (Sulfonamide Antibiotics); vg1 09:25 Bactrim; vg1 - Home Meds: 09:25 Lisinopril Oral [Active]; Metoprolol Tartrate Oral [Active]; Marisol Oral [Active]; vg1 - PMHx: 09:25 HTN; [address] 1 melanoma; vg1 - PSHx: 09:25 Tonsillectomy; Hysterectomy; section; Stomach; vg1 - Social history:: Smoking status: Patient reports the use of cigarette tobacco products, smokes one-half pack cigarettes per day. ROS: 09:05 Constitutional: Negative for fever, chills, and weight loss, Eyes: Negative for injury, jh7 pain, redness, and discharge, Neck: Negative for injury, pain, and swelling, Cardiovascular: Negative for chest pain, palpitations, and edema, Respiratory: Negative for shortness of breath, cough, wheezing, and pleuritic chest pain, Back: Negative for injury and pain, MS/Extremity: Negative for injury and deformity, Skin: Negative for injury, rash, and discoloration, Neuro: Negative for headache, weakness, numbness, tingling, and seizure. 09:05 Abdomen/GI: Positive for abdominal pain, nausea and vomiting, Negative for 09:05 All other systems are negative. Exam: 09:05 Head/Face: Normocephalic, atraumatic. Eyes: Pupils equal round and reactive to light, jh7 extra-ocular motions intact. Lids and lashes normal. Conjunctiva and sclera are non-icteric and not injected. Cornea within normal limits. Periorbital areas with no swelling, redness, or edema. Cardiovascular: Regular rate and rhythm with a normal S1 and S2. No gallops, murmurs, or rubs. Normal PMI, no JVD. No pulse deficits. Respiratory: Lungs have equal breath sounds bilaterally, clear to auscultation and percussion. No rales, rhonchi or wheezes noted. No increased work of breathing, no retractions or nasal flaring. Back: No spinal tenderness. No costovertebral tenderness. Full range of motion. Skin: Warm, dry with normal turgor. Normal color with no rashes, no lesions, and no evidence of cellulitis. MS/ Extremity: Pulses equal, no cyanosis. Neurovascular intact. Full, normal range of motion. Neuro: Awake and alert, GCS 15, oriented to person, place, time, and situation. Motor strength 5/5 in all extremities. Sensory grossly intact. Normal gait. 09:05 Constitutional: The patient appears alert, awake, in obvious distress, moderately distressed, in obvious pain. 09:05 Abdomen/GI: Inspection: abdomen appears normal, Bowel sounds: normal, Palpation: moderate abdominal tenderness, in the epigastric area, Actively vomiting. Vital Signs: 09:22 BP 105 / 81; Pulse 110; Resp 24; Temp 98.3; Pulse Ox 98% on R/A; Weight 83.91 kg; vg1 Height 5 ft. 4 in. (162.56 cm); Pain 8/10; 09:52 BP 101 / 76; Pulse 88; Resp 17; Pulse Ox 95% on R/A; Pain 1/10; tw2 11:20 BP 117 / 75; Pulse 104; Resp 24; Pulse Ox 99% on R/A; tw2 12:30 BP 111 / 75; Pulse 95; Resp 20; Pulse Ox 95% ; ll1 14:34 BP 102 / 64; Pulse 84; Resp 18; Pulse Ox 95% on R/A; ll1 15:09 BP 104 / 67; Pulse 77; Resp 17; Pulse Ox 95% on R/A; ll1 09:22 Body Mass Index 31.75 (83.91 kg, 162.56 cm) vg1 MDM: 09:02 Patient medically screened. [facility] 13:01 Differential diagnosis: GI Bleed, Perf. Gastric Ulcer, Esophageal obstruction. Data [facility] reviewed: vital signs, nurses notes, lab test result(s), radiologic studies, CT scan. Data interpreted: Pulse oximetry: is 95 %. Interpretation: normal. Counseling: I had a detailed discussion with the patient and/or guardian regarding: the historical points, exam findings, and any diagnostic results supporting the discharge/admit diagnosis, the need to transfer to another facility, for higher level of care, [facility] does not immediately have the required specialist. Physician consultation: Alcon Anderson MD after a discussion of the case, a recommendation for transfer for higher level of care is made. ED course: Patient will be transferred to [facility] in the [facility]. Spoke with Dr. Mcmillan in Bariatric Surgery who accepted the patient and requested NG tube. Also consulted with both Dr. Redd (GI) and Justin (Gen surg) who advised transfer.. 01/05 09:14 Order name: CBC with Diff; Complete Time: 10:17 [facility] 01/05 09:14 Order name: CMP; Complete Time: 10:17 [facility] 01/05 09:14 Order name: Lipase; Complete Time: 10:17 [facility] 01/05 09:14 Order name: PT-INR; Complete Time: 10:17 [facility] 01/05 09:14 Order name: Urine Microscopic Only; Complete Time: 12:36 [facility] 01/05 10:18 Order name: Lactate; Complete Time: 12:00 [facility] 01/05 09:14 Order name: CT Chest, Abdomen, Pelvis - W/Contrast; Complete Time: 11:28 [facility] 01/05 11:47 Order name: Occult Blood--Ancillary; Complete Time: 12:11 [facility] 01/05 12:15 Order name: Urine Dipstick-Ancillary; Complete Time: 12:30 [facility] 01/05 12:58 Order name: SARS-COV-2 Antigen Rapid bd 01/05 09:14 Order name: IV Saline Lock; Complete Time: 09:27 [facility] 01/05 09:14 Order name: Labs collected and sent; Complete Time: 09:27 jh7 01/05 09:14 Order name: Urine Dipstick-Ancillary (obtain specimen); Complete Time: 12:32 jh7 01/05 09:16 Order name: EKG - Nurse/Tech; Complete Time: 09:51 jh7 EC:54 Rate is 94 beats/min. Rhythm is regular. QRS [place] is Normal. VT interval is normal at jh7 130 msec. QRS interval is normal at 78 msec. QT interval is normal at 344 msec. No Q waves. Clinical impression: NSR w/ Non-specific ST/T Changes. Administered Medications: 09:43 Drug: NS 0.9% 1000 ml Route: IV; Rate: 1 bolus; Site: right antecubital; tw2 12:05 Follow up: Response: No adverse reaction; IV Status: Completed infusion; IV Intake: ll1 1000ml 09:43 Drug: Zofran (Ondansetron) 4 mg Route: IVP; Site: right antecubital; tw2 12:04 Follow up: Response: No adverse reaction [facility] 09:45 Drug: morphine 4 mg Route: IVP; Infused Over: 4 mins; Site: right antecubital; tw2 12:04 Follow up: Response: No adverse reaction; RASS: Alert and Calm (0) 1 12:04 Drug: Phenergan (promethazine) 12.5 mg Route: IVP; Site: right antecubital; 1 12:30 Follow up: Response: No adverse reaction; Nausea is decreased; RASS: Alert and Calm (0) ll1 12:04 Drug: ProTONIX (pantoprazole) 40 mg Route: IVP; Site: right antecubital; 1 12:30 Follow up: Response: No adverse reaction ll1 12:30 Drug: Zosyn (piperacillin-tazobactam) 3.375 grams Route: IVPB; Infused Over: 60 mins; ll1 Site: right antecubital; 13:34 Follow up: Response: No adverse reaction; IV Status: Completed infusion; IV Intake: ll1 100ml 13:30 Drug: ProTONIX (pantoprazole) 8 mg/hr Route: IV; Rate: 25 ml/hr; Site: right ll1 antecubital; 15:11 Follow up: IV Status: Completed infusion; Infusion continued upon transfer; IV Intake: ll1 24ml Disposition Summary: 01/05/22 12:15 Transfer Ordered Reason: Higher level of care [facility] Condition: Stable(01/05/22 12:15) [facility] Problem: new(01/05/22 12:15) [facility] Symptoms: are unchanged(01/05/22 12:15) [facility] Transfer Location: [facility](01/05/22 13:29) [facility] Accepting Physician: Dr Montes(01/05/22 15:19) ll1 Diagnosis - Esophageal obstruction(01/05/22 12:15) [facility] - GI Bleed [facility] Forms: - Medication Reconciliation Form [facility] - SBAR form [facility] Addendum: 01/08/2022 06:28 Co-signature as Attending Physician, Kings Yoder MD. r n Signatures: Dispatcher [employer] EDKings Patel MD MD rn Wise, Bea, RN RN tw2 Chelsi So RN RN vg1 Alda Ochoa RN RN ll1 Ramona Caldwell FNP [employer] [facility] Corrections: (The following items were deleted from the chart) 01/05 12:14 12:03 Inpatient Admission [place] [id number] 12:14 12:03 Yovana, Alex [place] [address] 12:14 12:03 Telemetry/MedSurg (Inpatient) [place] [address] 12:14 12:03 Stable [place] [address] 12:14 12:03 new [place] [address] 12:14 12:03 are unchanged [place] [address] 12:14 12:03 Standard [place] [address] 12:14 12:03 [place] [address] 12:14 12:03 Esophageal obstruction [place] [address] 12:14 12:03 Gastrointestinal Bleeding [place] [address] 13:29 12:15 Gastric Surgeon [place] [address] 13:29 12:15 Other Acute Care Facility [place] [address] 13:34 12:38 NG Tube ordered. [facility] ll1 15:19 13:29 Dr Montes 7 ll1
[2022-01-05 12:15] LABS: Urine Blood Trace-intact (Negative); Urine Glucose Negative (Negative); Urine Protein Negative (Negative); Urine Specific Gravity <=1.005 (1.005-1.030); Urine pH 5.5 (5.0-7.0)
[2022-01-05] MEDS ORDERED: NA CHLORIDE 0.9% 100 ML IV ONE (12:17)
[2022-01-05] MEDS ORDERED: PIPERACIL/TAZO 3.375 GM VIAL IV ONE (12:17)
[2022-01-05 12:30] LABS: Urine Mucus Slight /HPF (None Seen); Urine RBC <5 /HPF (None Seen)
[2022-01-05] MEDS ORDERED: PANTOPRAZOLE INJ 80 MG in NA CHLORIDE 0.9% 250 ML IV ONE (12:30)
[2022-01-05 13:39] LABS: SARS-CoV-2 Antigen Rapid Res Negative (Negative)
[2022-01-05 15:38] VITALS: TEMP 98.3
[2022-01-05 15:42] VITALS: O2SAT 95
[2022-01-05 15:44] VITALS: BP 104/67
--- NOTE | 2022-01-08 14:34 | EKG ---
Test Date: 2022-01-05 Test Time: 09:50:34 Charge Operator: LUIS MEASUREMENT RESULTS: Intervals: Rate: 94 OR: 130 QRSD: 78 QT: 344 QTc: 430 [place]: P: 26 OR: 130 QRS: -15 T: 80 INTERPRETIVE STATEMENTS: Sinus rhythm with occasional premature ventricular complexes Nonspecific ST and T wave abnormality Abnormal ECG Compared to ECG 02/15/2018 17:11:17 Ventricular premature complex(es) now present ST (T wave) deviation now present Electronically Signed On 01-08-22 14:31:27 CDT by Alfonso Blunt
== END 2022-01-05 15:19 | disposition short-term general hospital (02) ==
LOC: ER 08:58
DX: K22.2 Esophageal obstruction (principal); K92.2 Gastrointestinal hemorrhage, unspecified; I10 Essential (primary) hypertension; Z88.1 Allergy status to other antibiotic agents; Z88.2 Allergy status to sulfonamides; Z88.5 Allergy status to narcotic agent; Z20.822 Contact with and (suspected) exposure to COVID-19
CPT/HCPCS: 96365; 96361; 96368; 85025; 36415; 85610; 83605; 82272; 83690; 80053; 71260; 74177; 96375; 99285; 96366; 87811; Q9967; J2550; J2543; C9113 ×2; J7050; J7030; J2405; 81003; 81015; 93005